=== PATIENT | female | born 2000 | race Caucasian/White ===

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

== ENCOUNTER → 2021-02-11 | Outpatient (CLI) | payer OTHER ==
--- NOTE | 2021-02-11 16:58 | RAD ---
C-spine 5 views. HISTORY: Neck pain 5 views were taken of the cervical spine including both obliques. C-spine is in normal alignment. Dis c spaces are normal in height. A fracture is not identified. Neural foramina are widely patent on the oblique views. IMPRESSION: 1. Negative cervical spine. Electronically signed by: Julito Gustafson MD (02/11/2021 4:55 PM) [facility]
== END ==
LOC: RAD 16:18
PROVIDERS: ATTEND Physician Assistant
DX: S13.9XXA Sprain of joints and ligaments of unspecified parts of neck, initial encounter (principal); X58.XXXA Exposure to other specified factors, initial encounter; Y93.89 Activity, other specified; Y92.89 Other specified places as the place of occurrence of the external cause; Y99.8 Other external cause status
CPT/HCPCS: 72050